=== PATIENT | female | born 1985 | race Caucasian/White ===

== ENCOUNTER 2023-03-21 10:28 | Inpatient (IN) | payer BC ==
[2023-03-21] VITALS (21 sets, daily range): BP systolic 101–141; BP diastolic 48–80; PULSE 62–97; TEMP 97.8–98.2
[~2023-03-21] VITALS: Ht 177.8 cm; Wt 68.7 kg
[~2023-03-21 10:28] MED LIST: LORTAB 5/500 501 TAB PO; NO HOME MEDICATIONS; ZITHROMAX250 M1 PO
[2023-03-21] MEDS ORDERED: LR & Oxytocin 500 ML IV SCH (11:30)
[2023-03-21] MEDS ORDERED: LR 1,000 ML IV SCH (11:30)
[2023-03-21] MEDS ORDERED: ROPivacaine PF 0.2% 200 ML IV ONE (11:35)
[2023-03-21 11:46] LABS: BASO % 0.2 % (0.0-2.0); EOS # 0.1 K/mm3 (0.0-0.7); EOS % 0.5 % (0.0-4.0); GRAN # 7.9 K/mm3 (1.4-6.5); GRAN % 73.6 % (42.2-75.2); HEMATOCRIT 42.8 % (37.0-47.0); HEMOGLOBIN 14.3 g/dl (12.5-16.0); LYMPH # 1.8 K/mm3 (1.2-3.4); LYMPH % 16.5 % (20.0-51.0); MEAN CELL VOLUME 92 fl (80.0-100.0); MEAN CORPUSCULAR HEMOGLOBIN 31 pg (27-31); MEAN CORPUSCULAR HGB CONC 33 g/dl (33.0-37.0); MEAN PLATELET VOLUME 11.1 fl (7.4-10.4); MONO # 0.9 K/mm3 (0.1-0.6); MONO % 8.2 % (1.7-9.3); PLATELET COUNT 101 K/mm3 (130-400); RED BLOOD COUNT 4.63 M/mm3 (4.10-5.30); REDCELL DISTRIBUTION WIDTH-CV 13.2 % (11.5-14.5)
[2023-03-21] MEDS ORDERED: PRENATAL TABLET (12:27)
[2023-03-21] MEDS ORDERED: Ondansetron 4 MG/2 ML VIAL IV PRN (12:30)
[2023-03-21] MEDS ORDERED: diphenhydrAMINE 25 MG CAP PO PRN (12:30)
[2023-03-21] MEDS ORDERED: ePHEDrine 50 MG/10 ML VIAL IV PRN (12:30)
[2023-03-21] MEDS ORDERED: diphenhydrAMINE 50 MG/ML 1 ML VIAL IV PRN (12:30)
[2023-03-21] MEDS ORDERED: Naloxone 0.4 MG/ML VIAL IV PRN ×2 (12:30→13:00)
--- NOTE | 2023-03-21 12:51 | NUR ---
1101 DIONNA MAGANA BEDSIDE; SVE PERFORMED BY . ORDERS TO ADMIT TO LABOR AND GET PATIENT EPIDURAL IF DESIRED. 1102 PATIENT REQUESTING EPIDURAL; IVFB STARTED
--- NOTE | 2023-03-21 12:53 | NUR ---
1141 [employer] INSTALLATION HELPER BEDSIDE FOR EPIDURAL PLACEMENT, PT SITTING ON SIDE OF BED WITH RN AND SPOUSE SUPPORTING PATIENT
[2023-03-21] MEDS ORDERED: Witch Hazel 50% Pads Bulk TUB TP PRN (13:00)
[2023-03-21] MEDS ORDERED: Acetaminophen 500 MG TAB PO PRN (13:00)
[2023-03-21] MEDS ORDERED: Ibuprofen 800 MG TAB PO SCH (13:00)
[2023-03-21] MEDS ORDERED: Mag/Al Hydrox/Simeth Susp 30 ML CUP PO PRN (13:00)
[2023-03-21] MEDS ORDERED: Loratadine 10 MG TAB PO PRN (13:00)
[2023-03-21] MEDS ORDERED: Phenylephrine/Mineral Oil/Petrolatum 57 GM TUBE RC PRN (13:00)
[2023-03-21] MEDS ORDERED: Magnes Hydrox (MOM) 80 MG/ML 30 ML CUP PO PRN (13:00)
[2023-03-21] MEDS ORDERED: Measles/Mumps/Rubella Virus Vaccine Live w Diluent 0.5 ML VIAL SQ SCH (13:00)
[2023-03-21] MEDS ORDERED: oxyCODONE 5 MG TAB PO PRN (13:00)
--- NOTE | 2023-03-21 14:14 | NUR ---
1339 VAGINAL DELIVERY OF VIABLE MALE . DIONNA MAGANA AND FLOR BARNETT BEDSIDE WITH CHARGE NURSE IN ROOM WELL.
--- NOTE | 2023-03-21 16:42 | NUR ---
PT AMBULATES WITH RN TO BATHROOM, PT VOIDED AND BORA CARE PERFORMED
[2023-03-21] MEDS ORDERED: Sennosides/Docusate 8.6-50 MG TAB PO SCH (17:00)
[2023-03-21] MEDS ORDERED: traZODone 50 MG TAB PO PRN (21:00)
[2023-03-22 06:59] VITALS: BP 98/52; PULSE 64; TEMP 98.4
[2023-03-22] MEDS ORDERED: MOTRIN 800800 MG/TAB PO (08:43)
[2023-03-22] MEDS ORDERED: Rho(D) Imm Globulin 1,500 UNITS (300 MCG)/2 ML SYRINGE IV\\IM SCH (09:30)
[2023-03-22 14:08] VITALS: BP 100/72; PULSE 76; TEMP 98
== END 2023-03-22 15:08 | disposition home or self-care (01) | DRG 807 ==
LOC: LDRO 10:28 → LDR 11:00 → OB 16:44
PROVIDERS: ADMIT Obstetrics & Gynecology
PROC: 10E0XZZ Delivery of Products of Conception, External Approach (ICD-10-PCS; principal; 2023-03-21)
PROC: 0KQM0ZZ Repair Perineum Muscle, Open Approach (ICD-10-PCS; 2023-03-21)
PROC: 3E033VJ Introduction of Other Hormone into Peripheral Vein, Percutaneous Approach (ICD-10-PCS; 2023-03-21)
DX: O24.420 Gestational diabetes mellitus in childbirth, diet controlled (principal); Z37.0 Single live birth; O70.1 Second degree perineal laceration during delivery; O99.344 Other mental disorders complicating childbirth; F41.9 Anxiety disorder, unspecified; O69.1XX0 Labor and delivery complicated by cord around neck, with compression, not applicable or unspecified; Z3A.37 37 weeks gestation of pregnancy
CPT/HCPCS: J2791; J2795; J7120